=== PATIENT | female | born 1985 | race Caucasian/White ===

== ENCOUNTER 2022-08-29 07:35 | Day surgery (SDC) | payer BC ==
[2022-08-28 09:37] LABS: BASOPHILS % (AUTO) 0.3 % (0.0-2.0); EOSINOPHILS % (AUTO) 0.2 % (0.0-4.0); HEMATOCRIT 37.2 % (36-48); HEMOGLOBIN 12.1 g/dL (12.0-16.0); LYMPHOCYTES # (AUTO) 2.7 K/uL (2.5-16.5); LYMPHOCYTES % (AUTO) 23.1 % (20.5-51.1); MEAN CORPUSCULAR HEMOGLOBIN 28 pg (27-31); MEAN CORPUSCULAR HGB CONC 33 g/dL (33-37); MONOCYTES # (AUTO) 0.5 K/uL (0.8-1.0); MONOCYTES % (AUTO) 4.7 % (1.7-9.3); NEUTROPHILS # (AUTO) 8.5 K/uL (1.8-7.7); NEUTROPHILS % (AUTO) 71.7 % (42.2-75.2); PLATELET COUNT (AUTO) 319 K/uL (140-450); RED BLOOD CELL COUNT(AUTO) 4.32 MIL/uL (4.20-5.40); RED CELL DISTRIBUTION WIDTH 14.8 % (11.6-13.7); WHITE BLOOD COUNT (AUTO) 11.8 K/uL (4.8-10.8)
[2022-08-28 09:48] LABS: ALBUMIN 3.9 g/dL (3.4-5.0); ANION GAP 10.3 (8-16); CARBON DIOXIDE 27.5 mmol/L (21-32); CREATININE 0.7 mg/dL (0.6-1.3); POTASSIUM 3.8 mmol/L (3.5-5.1); TOTAL BILIRUBIN 0.7 mg/dL (0.0-1.0)
[~2022-08-29] VITALS: Ht 154.9 cm; Wt 83.5 kg
[2022-08-29] MEDS ORDERED: BUPIVACAINE-MPF 0.25% 30 ML VIAL INJ ONE (10:18)
[2022-08-29] MEDS ORDERED: ceFAZolin 1,000 MG VIAL ONE (10:33)
[2022-08-29] MEDS ORDERED: SEVOFLURANE 250 ML BTL INH ONE (10:33)
[2022-08-29] MEDS ORDERED: SUGAMMADEX SODIUM 200 MG/2 ML VIAL IV ONE (10:33)
[2022-08-29] MEDS ORDERED: fentaNYL citrate 0.05 MG/ML VIAL ONE (10:44)
[2022-08-29] MEDS ORDERED: ROCURONIUM 50 MG/5 ML VIAL IV ONE (11:12)
[2022-08-29] MEDS ORDERED: KETOROLAC 30 MG/ML VIAL ONE (11:12)
[2022-08-29] MEDS ORDERED: PROPOFOL 200 MG/20 ML VIAL IV ONE (11:12)
[2022-08-29] MEDS ORDERED: ONDANSETRON 4 MG/2 ML VIAL ONE (11:21)
[2022-08-29] MEDS ORDERED: ONDANSETRON 4 MG/2 ML VIAL IV PRN (11:45)
[2022-08-29] MEDS ORDERED: MORPHINE SULFATE 2 MG/ML SYR IVP PRN (11:45)
[2022-08-29] MEDS ORDERED: MORPHINE SULFATE 4 MG/ML SYR IV PRN (11:45)
[2022-08-29] MEDS ORDERED: HYDROmorphone 1 MG/ML AMP IVP PRN ×2 (11:45→11:50)
[2022-08-29] MEDS ORDERED: LABETALOL 20 MG/4 ML VIAL IVP PRN (11:47)
[2022-08-29] MEDS ORDERED: hydrALAZINE 20 MG/ML VIAL IVP PRN (11:47)
[2022-08-29] MEDS ORDERED: METOCLOPRAMIDE 10 MG/2 ML INJ VIAL IVP PRN (11:47)
[2022-08-29] MEDS ORDERED: LACTATED RINGERS 1,000 ML IV SCH (11:50)
== END 2022-08-29 13:14 | disposition home or self-care (01) ==
LOC: MDS 07:35 → MMU 07:42 → MDS 13:14
PROVIDERS: ATTEND Surgery
DX: D24.1 Benign neoplasm of right breast (principal); N63.11 Unspecified lump in the right breast, upper outer quadrant
CPT/HCPCS: 19120; 36415; 71045; 80053; 81025; 85025; J0690; J1885; J2405; J2704; J3010; J3490